=== PATIENT | female | born 1985 | race Hispanic/Latino ===

== ENCOUNTER 2017-09-10 11:42 | Inpatient (IN) | payer OTHER ==
[2017-09-10] MEDS ORDERED: Sodium Citrate/Citric Acid 15 ml Sol PO ONE (12:53)
[2017-09-10] MEDS ORDERED: Lactated Ringer's 1,000 ML IV SCH ×2 (13:00→14:45)
[2017-09-10] MEDS ORDERED: Betamethasone Soluspan 30 mg/5mL Inj Susp IM ONE (13:30)
[2017-09-10] MEDS: Lactated Ringer's 1,000 ML IV SCH (13:30)
[2017-09-10 13:57] LABS: INR 0.9
[2017-09-10 14:01] LABS: ALB/GLOB RATIO 0.9 (1.0-2.1); ALBUMIN 3.3 g/dL (3.5-5.0); CALCIUM 8.7 mg/dl (8.6-10.4); GFR AFRICAN-AMERICAN > 60; GFR NON-AFRICAN AMERICAN > 60; URIC ACID 4.4 mg/dL (2.2-7.5)
[2017-09-10 14:02] LABS: ALT/SGPT 22 U/L (9-52); AST/SGOT 27 U/L (14-36); BASO % 0.6 % (0.0-2.0); BLOOD UREA NITROGEN 8 mg/dL (7-17); EOS # 0.1 K/uL (0.0-0.7); EOS % 0.7 % (0.0-4.0); HEMOGLOBIN 12.6 g/dL (11.0-16.0); LYMPH # 2.4 K/uL (1.0-4.3); LYMPH % 28.4 % (20.0-40.0); MEAN CELL VOLUME 79.5 fL (81.0-99.0); MEAN CORPUSCULAR HGB CONC 33.9 g/dL (33.0-37.0); MEAN PLATELET VOLUME 11.4 fL (7.2-11.7); MONO # 0.5 K/uL (0.0-0.8); MONO % 6.3 % (0.0-10.0); NEUT # 5.4 K/uL (1.8-7.0); NRBC % 0.1 % (0.0-2.0); RBC 4.67 Mil/uL (3.80-5.20); RED CELL DISTRIBUTION WIDTH 15.9 % (11.5-14.5); WHITE BLOOD COUNT 8.4 K/uL (4.8-10.8)
[2017-09-10 14:05] LABS: SQUAMOUS EPITHIAL < 1 /hpf (0-5); URINE BACTERIA RARE (<OCC); URINE BILIRUBIN NEGATIVE (NEGATIVE); URINE BLOOD NEGATIVE (NEGATIVE); URINE CLARITY Hazy (Clear); URINE COLOR Yellow (YELLOW); URINE GLUCOSE (UA) NORMAL (Normal); URINE LEUKOCYTE ESTERASE NEG Leu/uL (Negative); URINE NITRATE NEGATIVE (NEGATIVE); URINE PROTEIN 2+ mg/dL (NEGATIVE); URINE UROBILINOGEN NORMAL mg/dL (0.2-1.0)
[2017-09-10] MEDS ORDERED: cefOXitin 2 GM in Sodium Chloride 0.9% 100 ML IV SCH (15:00)
[2017-09-10] MEDS ORDERED: cefOXitin IV 2 gm in Saline 2 GM/50 ML BAG IVPB ONE (15:24)
[2017-09-10 16:01] LABS: HEPATITIS B SURFACE AG Negative (NEGATIVE)
[2017-09-10] MEDS ORDERED: ePHEDrine 50 mg/ml Inj ONE (16:37)
[2017-09-10] MEDS ORDERED: Morphine 1 mg/ml preservative-free Inj(Duramorph) ONE (16:37)
[2017-09-10] MEDS ORDERED: Oxytocin 10 Units/ml Inj ONE (16:52)
[2017-09-10] MEDS ORDERED: Oxytocin 20 units in LR 2,000 ML IV ONE (16:52)
--- NOTE | 2017-09-10 17:39 | OBADHP ---
Datetime: 09/10/2017 12:29 Admit Comment, IP Provider: 32 yo at 36w1d WILBERT 10/07 by LMP presents complaining of elevated blood pressure reading at home. Patient has been feeling somewhat dizzy and short of breath today and is experiencing some epigastric abdominal pain, but denies chest pain, headache, palpitations. She h as not felt any contractions, and currently feels the baby moving. She has not had any vaginal bleedi ng, leakage of fluid, or discharge. She denies any fever, chills, dysuria, diarrhea, constipation. issues: None OB Hx: 1. 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 Mother age 56 with HTN Meds: PNV Social Hx: Denies tobacco, alcohol, illicits. Lives with of 7 years and son PE: see above A/P: 32 yo at 36w1d with elevated bp r/o preeclmapsia - Monitor BP Q15min - PIH labs - Celestone - TOCO and EFM - Bycitra - Repeat HIV screen Discussed with Dr. Zepeda pt seen adn evauted with increaed blood pressure and headache not imporved and epigastric pain. pt reports bicrtra only minimal improvment adnd counsled on preeclmapsia with severe fealture. pt offered magnesum tehrapy, however delciend. r/b/a/i of premature deilvery dicussed with patietn not lmtied to rds etc. 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 Gravid uterus, fundus at 35cm Ext: No clubbing or cyanosis. 1+ pitting edema to knees Neuro: CN II-XII grossly intact, PERRL, 5/5 strength in all four extremities, sensation grossly in tact Vital Signs Provider: Reviewed Vital Signs Provider Details: Markedly hypertensive IP Chief Complaint: Signs/Symptoms Gestational HTN NICHD Variability Prov Fetus A: Moderate 6-25bpm FHR Category Provider Fetus A: Category I NICHD Decel Fetus A IP Provider: None EGA AdmitDate IP: 36.1 IP Adm Impression: , intrauterine IP Admit Plan: Observation/Evaluation
--- NOTE | 2017-09-10 17:39 | OBDS ---
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 Babies in Womb: 1 STAGES OF LABOR Stage 3 hrs: 0 Stage 3 min: 1 CSECTION DELIVERY Primary Indication: Other Other Primary Indication: preeclampsia with severe features CSection Urgency: Emergency CSection Incidence: Repeat Labor: N/A CSection Incision: Lower Uterine Transverse BABY A INFORMATION Infant Delivery Date/Time: 09/10/2017 16:59 Method of Delivery: Born in Route : No : N/A Forceps: N/A Vacuum Extraction: N/A Shoulder Dystocia : No SHOULDER DYSTOCIA BABY A Delivery Date/Time: 09/10/2017 16:59 PRESENTATION/POSITION BABY A Presentation: Cephalic Cephalic Presentation: Vertex Vertex Position: Left Occipital Anterior Breech Presentation: N/A PLACENTA INFORMATION BABY A Placenta Delivery Time : 09/10/2017 17:00 Placenta Method of Delivery: Manual Removal Placenta Status: Delivered SCORES BABY A Heart Rate 1 min: >100 bpm Resp Effort 1 min: Good Cry Reflex Irritability 1 min: Cough or Sneeze or Pulls Away Muscle Tone 1 min: Active Motion Color 1 min: Body [place], Extremities Blue Resuscitation Effort 1 min: Tactile Stimulation SCORE 1 MIN: 9 Heart Rate 5 min: >100 bpm Resp Effort 5 min: Good Cry Reflex Irritability 5 min: Cough or Sneeze or Pulls Away Muscle Tone 5 min: Active Motion Color 5 min: Body [place], Extremities Blue SCORE 5 MIN: 9 INFORMATION BABY A Gestational Age at Delivery: 36.1 Gestational Status: Outcome : Liveborn Condition : Stable Sex: Male IDENTIFICATION/MEDS BABY A ID Band Number: [id number] ID Band Location: Left Leg; Left Arm Sensor Applied: Yes Sensor Number: [id number] Sensor Location : Cord Clamp WEIGHT/LENGTH BABY A Birthweight (gms): 2850 Infant Weight (lb): 6 Infant Weight (oz): 5 Infant Length Inches: 18.50 Infant Length cms: 47.0 CORD INFORMATION BABY A No. Cord Vessels: 3 Nuchal Cord : N/A Cord Blood Taken: Yes Suction: Mouth
--- NOTE | 2017-09-10 17:48 | PCM.SURG1 ---
Surgeon's Initial Post Op Note - Surgeon's Notes Surgeon: Veronica Zepeda MD Continuous Improvement Intern: Jose Eduardo Adames MD Type of Anesthesia: Spinal Pre-Operative Diagnosis: Previus cesearen section, preeclmapisa with severe features Operative Findings: live male agprs 9,9 weight of 6lbs 5 ounces micki appearng utuers, tubes and ovaeri bilaterally, peidatiricn presnet for delivery. Dr Jose Eduardo Adames was surgical assistance adn was present for entire case and essential in gainign entry, retraction, [id number], holding bladder blade, obtainign hemostaiss, closing all layers. Post-Operative Diagnosis: same as above Operation Performed: Repeat low transverse cesearen section Specimen/Specimens Removed: placenta Estimated Blood Loss: EBL {In ML}: 800 Blood Products Given: N/A Drains Used: No Drains Post-Op Condition: Good Date of Surgery/Procedure: 09/10/17 Time of Surgery/Procedure: 17:30
[2017-09-10] MEDS ORDERED: Oxycodone/Acetaminophen 5/325 mg Tab PO PRN ×2 (17:54)
[2017-09-10] MEDS ORDERED: DiphenhydrAMINE 50 mg/ml Inj IVP PRN (17:59)
--- NOTE | 2017-09-11 05:14 | OP ---
PROCEDURE DATE: 09/10/2017 SURGEON: Veronica Zepeda MD WIRING TECHNICIAN: Jose Eduardo Adames MD TYPE OF ANESTHESIA: Spinal. PREOPERATIVE DIAGNOSIS: Previous section, preeclampsia with severe seizures. POSTOPERATIVE DIAGNOSIS: Previous section, preeclampsia with severe seizures. OPERATIVE FINDINGS: Live male infant, Apgars 9 and 9, weight is 6 pounds 5 ounces, normal-appearing uterus, tubes, and ovaries bilaterally. Pie Icer Machine present for delivery. Dr. Jose Eduardo Adames, the surgical instrument technician, was present for the entire case, essentially in gaining entry, retraction, exposure, holding the bladder blade, attaining hemostasis, closing all layers. OPERATION PERFORMED: Repeat low-transverse section. SPECIMEN REMOVED: Placenta. ESTIMATED BLOOD LOSS: 900 mL. BLOOD PRODUCTS: None. COMPLICATIONS: None. DESCRIPTION OF PROCEDURE: The patient is a 32-year-old G-tube P1 at 36 plus weeks that had complaints of elevated blood pressure of 160/100 with headache and epigastric pain. The patient had preeclampsia labs and was found to have 2+ protein with no improvement with headache worsening. The patient was counseled on preeclampsia with severe features and starting of magnesium sulfate in addition to repeat section. The patient declined magnesium therapy, was counseled a repeat section. Risks, benefits, alternatives, and indications were discussed with the patient, consent signed. The patient was transferred to the operating room where she was given spinal anesthesia. Once found to be adequate, she was positioned on the operating table dorsal supine position. The patient was prepped and draped in the usual sterile fashion. A time-out confirmed correct patient and correct procedure. Pfannenstiel skin incision was made with a scalpel, carried down to the underlying fascia with a Bovie. The fascia was incised in the midline. The incision was extended laterally with the Bovie. The fascial incision was grasped with Allis and Marisel clamps and the underlying rectus muscles were dissected off bluntly. Attention was then turned to the superior aspect which in a similar fashion was grasped with Allis and Marisel clamps and the underlying rectus muscles were dissected off bluntly. The rectus muscles were then bluntly in the midline. The peritoneum was identified and entered in the clear space. The incision was extended laterally and superiorly until there was good visualization of the bladder. The vesicouterine peritoneum was incised with Metzenbaum scissors and then incision was extended laterally. The bladder flap created digitally and the lower end of the Lenoir was then reinserted. The lower uterine segment was incised in a transverse fashion. The uterine incision was . Amniotic membranes were then ruptured and entered the uterine cavity. 's head was delivered atraumatically, followed by delivery of shoulders, followed by delivery of body. Both oral and nasal passages of the baby were bulb suctioned. The umbilical cord was clamped and cut, and the baby was handed off to the awaiting employee benefits manager. Cord blood and cord gases were collected and sent x2. The placenta was then delivered manually. The uterus was exteriorized while cleared of clots and debris and the uterine incision was repaired with 0-Vicryl in a running continuous locked fashion. A second layer of the same suture was used to close the uterus in a running imbricated manner. There were normal tubes and ovaries bilaterally. There was good hemostasis at the uterine incision site. Peritoneum was reapproximated with 2-0 chromic in a continuous fashion. The rectus was reapproximated with 2-0 chromic in a continuous fashion. The rectus was reapproximated with a 2-0 chromic in interrupted manner. The fascia was reapproximated close with 0 Vicryl in a running continuous fashion. The subcutaneous incision was closed with 2-0 plain in an interrupted manner and the skin was reapproximated with 4-0 Monocryl in a running subcuticular fashion. At the end of the procedure, all needle, sponge, and instrument counts were noted to be correct x2. The patient tolerated the procedure well and was transferred to the recovery room in stable condition. Veronica Zepeda MD
[2017-09-11] MEDS: Lactated Ringer's 1,000 ML IV SCH ×2 (07:30→13:30)
[2017-09-11 07:44] LABS: BASO % 0.1 % (0.0-2.0); HEMOGLOBIN 11.7 g/dL (11.0-16.0); LYMPH # 1.4 K/uL (1.0-4.3); LYMPH % 10.4 % (20.0-40.0); MEAN CELL VOLUME 80.1 fL (81.0-99.0); MEAN CORPUSCULAR HEMOGLOBIN 27.3 pg (27.0-31.0); MEAN PLATELET VOLUME 11.4 fL (7.2-11.7); MONO # 0.5 K/uL (0.0-0.8); MONO % 3.4 % (0.0-10.0); NEUT # 11.7 K/uL (1.8-7.0); NEUT % 86.1 % (50.0-75.0); RBC 4.28 Mil/uL (3.80-5.20); RED CELL DISTRIBUTION WIDTH 16.3 % (11.5-14.5); WHITE BLOOD COUNT 13.6 K/uL (4.8-10.8)
[2017-09-11] MEDS: Simethicone 80 mg Chewtab PO SCH ×4 (10:57→23:33)
[2017-09-11] MEDS ORDERED: Bisacodyl 5mg EC Tab PO ONE (17:55)
--- NOTE | 2017-09-11 18:42 | OBPPN ---
Datetime: 09/11/2017 07:39 PP Pain Prov: Within normal limits PP Nausea Prov: Denies PP Flatus Prov: No PP BM Prov: Yes PP Heart Prov: Normal PP Lungs Prov: Normal PP Abdomen/Uterus Prov: Normal PP Lochia Prov: Normal PP Extremities Prov: Normal PP C/S Incision Prov: Normal PP Progress Prov: Normal PP Impression Prov: Normal progression PP Plan Prov: Continue present management PP Progress Note Prov: Patient seen and examined at bedside. Per nursing no acute events overnight. Patient is doing well, pain is controlled. She was nauseous this morning, had zofran with relief in s ymptoms. She is currently out of bed to chair. Tolerating clears. Lambert removed this morning, has not urinated yet. Lochia is mild. Passing flatus, denies BM. Breast and bottle feeding. Denies headache s, dizziness, cp, palpitations, sob, urinary symptoms. VS: 130/77 62 98.2 I/O: 1625/600 Gen: AAOx3 Abd: Ext: Labs: 8.4>12.6/37.2<186 F/U am CBC B positive Rubella immune A/P: 32 year old at 36w1d s/p RLTCD 2/2 pre-eclampsia with severe features POD#1 -Stable, afebrile -Pain control: percocet prn -F/U am CBC -Advance diet as tolerated -Monitor BPs closely -Lambert removed, f/u voiding trial -Encourage ambulation and hydration -Encourage ISS use -Male infant - desires circ -Continue routine care -Plan discussed with Dr Duane Joe DO PGY-1 agree iwth aobe pt seen adn examined, ambuating out of bed, palssign flatus, toelrated reulg diet, breast feeding dneis any feer, chilsl, ane ivomting VSS PE see aove plan con t current postop man gment vss, asytmpocs Vital Signs Provider PP: Reviewed; Within Normal Limits
[2017-09-12] MEDS: Simethicone 80 mg Chewtab PO SCH ×4 (09:46→23:25)
[2017-09-13 00:03] VITALS: O2SAT 97
--- NOTE | 2017-09-13 06:09 | OBPPN ---
Datetime: 09/12/2017 08:50 PP Pain Prov: Within normal limits PP Nausea Prov: Denies PP Flatus Prov: Yes PP BM Prov: No PP Heart Prov: Normal PP Lungs Prov: Normal PP Abdomen/Uterus Prov: Normal PP Lochia Prov: Normal PP Extremities Prov: Normal PP C/S Incision Prov: Normal PP Progress Prov: Normal PP Impression Prov: Normal progression PP Plan Prov: Continue present management PP Progress Note Prov: Patient seen and examined at bedside. Per nursing no acute events overnight. Patient is doing well, pain is controlled. Lochia is mild. Ambulating and tolerating diet. Passing fl atus, denies BM. Urinating without difficulty. Breast and bottle feeding. Denies headaches, dizziness , blurry vision, cp, palpitations, sob, urinary symptoms. VS: 130/83 72 97.5 Gen: AAOx3 Abd: Soft, fundus firm below umbilicus, incision c/d/i Ext: +1 edema, no cyanosis, clubbing; no calf tenderness Labs: 8.4>12.6/37.2<186 13.6>11.7/34.3<184 B positive Rubella immune A/P: 32 year old at 36w1 s/p RLTCD for pre-eclampsia POD#2 -Stable, afebrile -Pain control: Percocet prn -Encourage ambulation and hydration -Encourage -Continue routine care -Male infant, desires circ -Anticipate d/c home tomorrow -Plan discussed with Dr Duane Joe DO PGY-1 agree with above pt richy and eaminex ambitng toelrated reuglar diet pain controlled enrique headhace, blurry vision, ruq/pgiast terry pe as aobve plan cont currunet kuldeep anticpat [place] Vital Signs Provider PP: Reviewed; Within Normal Limits
--- NOTE | 2017-09-13 06:11 | OBDCSUM ---
Datetime: 09/13/2017 06:09 Discharged to, Provider: Home Follow up at, Provider: Dr Zepeda Disch Instr Activity: Normal activity Disch Instr Diet: Regular Discharge Instructions, Provider: Routine instructions given Discharge Time: 09/13/2017 10:09 Follow up in weeks, Provider: 1 weeks Disch Referrals: None Contraception discussed, Prov: Yes Disch Activity Restrictions: No sexual activity; Nothing in vagina - [place], tampons, douche Discharge Comment, Provider: precautions oh, silvia peralta, bp >140/90 , pain, dizzyness, call md and go to er Discharge Diagnosis Prov Other: 36+ wk, previous cesearean section Contraception after Delivery: Not Planning to Use
--- NOTE | 2017-09-13 07:37 | OBPPN ---
Datetime: 09/13/2017 07:35 PP Pain Prov: Within normal limits PP Nausea Prov: Denies PP Flatus Prov: Yes PP BM Prov: Yes PP Breasts Prov: Normal PP Heart Prov: Normal PP Lungs Prov: Normal PP Abdomen/Uterus Prov: Normal PP Lochia Prov: Normal PP Vulva/Perineum Prov: Normal PP CVA Tenderness Prov: Normal PP Extremities Prov: Normal PP C/S Incision Prov: Normal PP Progress Prov: Normal PP Impression Prov: Normal progression PP Plan Prov: Discharge PP Progress Note Prov: pt seen and examiend yessica beck well controlle.leslie dugan passi ng fltus, +BM, dnei snay headhae, blurry vsin, ruq/epsgiastri pain VSS PE see above A/P s/p RLTCS POD #3 doing well dc home rto 1 week precautisn given IP PP Procedures: None Vital Signs Provider PP: Reviewed; Within Normal Limits
[2017-09-13] MEDS: Simethicone 80 mg Chewtab PO SCH (10:23)
[2017-09-14 01:28] VITALS: BP 153/86; PULSE 62; RESP 18; TEMP 98.1
== END 2017-09-13 15:15 | disposition home or self-care (01) | DRG 766 ==
LOC: C.EROB 11:42 → C.4D 14:41 → C.4M 20:15
PROVIDERS: ADMIT Obstetrics & Gynecology; ATTEND Obstetrics & Gynecology
PROC: 10D00Z1 Extraction of Products of Conception, Low, Open Approach (ICD-10-PCS; principal; 2017-09-10)
DX: O14.14 Severe pre-eclampsia complicating childbirth (principal); R56.9 Unspecified convulsions; Z3A.36 36 weeks gestation of pregnancy; O34.219 Maternal care for unspecified type scar from previous cesarean delivery; O75.89 Other specified complications of labor and delivery; Z37.0 Single live birth